=== PATIENT | female | born 1980 | race Caucasian/White ===

== ENCOUNTER 2021-02-22 13:45 | Emergency (ER) | payer BC ==
[2021-02-22 14:16] VITALS: BMI 23.0
[2021-02-22] MEDS ORDERED: CASIRIVIMAB/IMDEVIMAB 10 ML in SODIUM CHLORIDE 100 ML IVPB ONE (14:43)
[2021-02-22 15:47] VITALS: TEMP 98.8
[2021-02-22 16:23] VITALS: BP 103/75; PULSE 64
== END 2021-02-22 19:00 | disposition home or self-care (01) ==
LOC: JER 13:45
PROC: 3E033GC Introduction of Other Therapeutic Substance into Peripheral Vein, Percutaneous Approach (ICD-10-PCS; principal; 2021-02-22)
DX: U07.1 COVID-19 (principal)
CPT/HCPCS: 99284-25; Q0240